=== PATIENT | female | born 1965 | race Caucasian/White ===

== ENCOUNTER 2016-08-07 08:57 | Day surgery (SDC) | payer OTHER ==
[~2016-08-07] VITALS: Ht 165.1 cm; Wt 103.4 kg
[~2016-08-07 08:57] MED LIST: ADVAIR 250/501 DISK IH; CALCIUM + D3 E1 EACH PO; CYMBALTA60 MG PO; DAILY MULTIPLE1 EACH PO; SINGULAIR10 MG PO; VENTOLIN HFA18 GM IH
[2016-08-07 09:30] VITALS: BP 109/83
[2016-08-07 12:24] VITALS: BP 117/66
[2016-08-07 12:53] VITALS: BP 119/87
== END 2016-08-07 13:12 | disposition home or self-care (01) ==
LOC: SDC 08:57
PROC: 01Q53ZZ Repair Median Nerve, Percutaneous Approach (ICD-10-PCS; principal; 2016-08-07)
DX: G56.01 Carpal tunnel syndrome, right upper limb (principal); J45.909 Unspecified asthma, uncomplicated; M19.90 Unspecified osteoarthritis, unspecified site
CPT/HCPCS: J0690; J2250; J3010; S0020